=== PATIENT | female | born 1980 | race Hispanic/Latino ===

== ENCOUNTER 2018-04-21 15:19 | Emergency (ER) | payer BC, OTHER ==
[2018-04-21 15:20] VITALS: BMI 38.1
--- NOTE | 2018-04-21 16:05 | ED PDOC ---
Arrival/HPI - General Historian: Patient - History of Present Illness Time/Duration: < week Symptom Onset: Sudden Symptom Course: Unchanged Quality: Throbbing <Keegan Fowler - Last Filed: 04/21/18 17:29> - History of Present Illness Quality: Tightness, Stabbing, Cramping Severity Level: Severe Activities at Onset: Rest Context: Home <Ramiro Green - Last Filed: 04/21/18 18:15> - General Chief Complaint: Dental Pain Time Seen by Provider: 04/21/18 15:36 - History of Present Illness Narrative History of Present Illness (Text): 04/21/18 16:02 Pt is a 38 yo F with PMH of TMJ presents with left jaw pain. Patient states that pain has been present for 3 days and attempted to control pain with Naproxen. However, pain worsened and right jaw became more swollen. Patient states she was diagnosed with TMJ 6 years ago and has used a nighttime mouthpiece in the past, which improved her symptoms, but has not been able to use it recently. Patient also complains of ear pain and pain radiating down right side of her neck. Patient denies CP, SOB, n/v/d, abdominal pain, fever, chills, GILLIAM, or dizziness. (Keegan Fowler) Past Medical History - Provider Review Nursing Documentation Reviewed: Yes - Infectious Disease Hx of Infectious Diseases: None - Tetanus Immunization Tetanus Immunization: Unknown - Cardiac Hx Cardiac Disorders: No - Pulmonary Hx Respiratory Disorders: Yes Hx Asthma: Yes - Neurological Hx Neurological Disorder: No - HEENT Hx HEENT Disorder: No - Renal Hx Renal Disorder: Yes Hx Neurogenic Bladder: Yes Hx Pyelonephritis: Yes - Endocrine/Metabolic Hx Endocrine Disorders: No - Hematological/Oncological Hx Blood Disorders: No - Integumentary Hx Dermatological Disorder: No - Musculoskeletal/Rheumatological Hx Musculoskeletal Disorders: No - Gastrointestinal Hx Gastrointestinal Disorders: Yes Hx Gastritis: Yes - Genitourinary/Gynecological Hx Genitourinary Disorders: No - Psychiatric Hx Psychophysiologic Disorder: No Hx Depression: No Hx Substance Use: No - Past Surgical History Past Surgical History: Non-Contributing - Anesthesia Hx Anesthesia: No - Suicidal Assessment Feels Threatened In Home Enviroment: No <Keegan Fowler - Last Filed: 04/21/18 17:29> - Travel History Have you recently traveled outside [place] w/in the past 3 mons?: No - Past History Past History: No Previous - Reproductive Currently : Unknown <Ramiro Green - Last Filed: 04/21/18 18:15> Family/Social History - Physician Review Nursing Documentation Reviewed: Yes Family/Social History: No Known Family HX Smoking Status: Never Smoked Hx Alcohol Use: Yes Hx Substance Use: No Hx Substance Use Treatment: No <Keegan Fowler - Last Filed: 04/21/18 17:29> Allergies/Home Meds <Keegan Fowler - Last Filed: 04/21/18 17:29> <Ramiro Green - Last Filed: 04/21/18 18:15> Allergies/Adverse Reactions: Allergies No Known Allergies Allergy (Verified 04/21/18 15:22) Home Medications: Home Meds Medication Instructions Recorded Confirmed Albuterol 0.083% [Albuterol 0.083% 1 puff INH PRN PRN 06/22/17 04/21/18 Inhal Karla (2.5 mg/3 ml) UD] Fluticasone/Vilanterol [Breo 1 puff NEB DAILY 04/21/18 04/21/18 Ellipta 100-25 Mcg INH] Review of Systems - Review of Systems Constitutional: Normal Eyes: Normal ENT: Other (Right jaw pain, swelling, ear pain) Respiratory: Normal Cardiovascular: Normal Gastrointestinal: Normal Genitourinary Female: Normal Musculoskeletal: Normal Skin: Normal Neurological: Normal Endocrine: Normal Hemo/Lymphatic: Normal Psychiatric: Normal <Keegan Fowler - Last Filed: 04/21/18 17:29> Physical Exam Temperature: Afebrile Blood Pressure: Normal Pulse: Regular Respiratory Rate: Normal Appearance: Positive for: Uncomfortable Pain Distress: Moderate Mental Status: Positive for: Alert and Oriented X 3 - Systems Exam Head: Present: Atraumatic, Normocephalic Pupils: Present: PERRL Extroacular Muscles: Present: EOMI Conjunctiva: Present: Normal Mouth: Present: Other (multiple dental caries without signs of erythema or abscess; right jaw swelling; audible click with mouth opening) Neck: Present: Normal Range of Motion Respiratory/Chest: Present: Clear to Auscultation, Good Air Exchange. No: Respiratory Distress, Accessory Muscle Use Cardiovascular: Present: Regular Rate and Rhythm, Normal S1, S2. No: Murmurs Abdomen: No: Tenderness, Distention, Peritoneal Signs Back: Present: Normal Inspection Upper Extremity: Present: Normal Inspection. No: Cyanosis, Edema Lower Extremity: Present: Normal Inspection. No: Edema Neurological: Present: GCS=15, CN II-XII Intact, Speech Normal Skin: Present: Warm, Dry, Normal Color. No: Rashes Psychiatric: Present: Alert, Oriented x 3, Normal Insight, Normal Concentration <Keegan Fowler - Last Filed: 04/21/18 17:29> Vital Signs Temp Pulse Resp BP Pulse Ox 04/21/18 17:11 98.0 F 78 18 135/79 99 04/21/18 15:23 97.8 F 82 16 138/89 98 Medical Decision Making <Keegan Fowler - Last Filed: 04/21/18 17:29> Re-evaluation Time: 16:55 Reassessment Condition: Improving,but remains with symptoms <Ramiro Green - Last Filed: 04/21/18 18:15> ED Course and Treatment: 04/21/18 16:06 38 yo F presents with right jaw pain. Plan: - Motrin - reassess and disposition 04/21/18 17:29 On reassessment, patient states that pain is still present. Tramadol ordered. Patient states that pain is improved. Patient was advised to follow up with Oromaxillofacial surgeon. Patient medically stable for discharge. (Keegan Fowler) Patient Seen With Resident: In agreement with resident note which contains more details about the patient. Patient was seen and evaluated with resident. Came up with plan and treatment together. I performed the hx and physical exam of the patient and discussed their mgt with the RESIDENT. I reviewed the RESIDENT's NOTE and agree with the assessment and plan of care. exam: right TMJ region point tenderness, no crepitus noted, + right lower jaw/ mild swelling noted, no overlaying skin erythema, no open wounds/lesions noted; pt is able to open mouth slightly, able to see the posterior pharynx with midline tongue/uvula noted, no sores/lesions/wounds/rashes noted; no dysphonia/ drooling, no dental swelling/tenderness noted vital signs WNL pt is made aware of her medical results pt is encouraged not to chew gum/chew meat, and bland/simple/soft diet is encouraged pt is encouraged fluids pt will follow up as directed pt will be discharged home (Ramiro Green) - Medication Orders Current Medication Orders: Discontinued Medications Ibuprofen (Motrin Tab) 800 mg PO STAT STA Stop: 04/21/18 15:54 Last Admin: 04/21/18 16:24 Dose: 800 mg Tramadol HCl (Ultram) 50 mg PO STAT STA Stop: 04/21/18 17:06 Last Admin: 04/21/18 17:12 Dose: 50 mg MAR Pain Assessment Document 04/21/18 17:12 SF (Rec: 04/21/18 17:12 [id number]) Pain Reassessment Is this a pain reassessment? Yes Sleep Is patient sleeping during reassessment? No Presence of Pain Presence of Pain Yes Disposition/Present on Arrival - Present on Arrival Any Indicators Present on Arrival: No History of DVT/PE: No History of Uncontrolled Diabetes: No Urinary Catheter: No History of Decub. Ulcer: No History Surgical Site Infection Following: None - Disposition Have Diagnosis and Disposition been Completed?: Yes Disposition Time: 17:46 Patient Plan: Discharge <Keegan Fowler - Last Filed: 04/21/18 17:29> <Ramiro Green - Last Filed: 04/21/18 18:15> - Disposition Diagnosis: TMJ (temporomandibular joint syndrome) Disposition: HOME/ ROUTINE Patient Problems: Current Active Problems Problem Status Onset TMJ (temporomandibular joint syndrome) Acute Condition: STABLE Discharge Instructions (ExitCare): Temporomandibular Joint (TMJ) Disorders (DC) Print Language: WOLOF Additional Instructions: 1. Take Motrin as needed for pain 2. Follow up with dentist or oromaxillofacial surgeon outpatient 3. Follow up with PMD 4. If symptoms worsen, please return to ED 5. Drink plenty of fluids, SOFT Diet is encouraged, avoid chewing on the side of your face pain MANINDER WYLIE, thank you for letting us take care of you today. Your provider was Ramiro Green MD and you were treated for NECK PAIN. The emergency medical care you received today was directed at your acute symptoms. If you were prescribed any medication, please fill it and take as directed. It may take several days for your symptoms to resolve. Return to the Emergency Department if your symptoms worsen, do not improve, or if you have any other problems. Please contact your doctor or call one of the physicians/clinics you have been referred to that are listed on the Patient Visit Information form that is included in your discharge packet. Bring any paperwork you were given at discharge with you along with any medications you are taking to your follow up visit. Our treatment cannot replace ongoing medical care by a primary care provider outside of the emergency department. Thank you for allowing the [facility] team to be part of your care today. Follow up with Oral-Maxillofacial Surgery/service at the followin) [facility] call [phone] for further appointment 2) The Department of Dental Medicine treats all age groups from through geriatrics. Hours of Operation Monday - Monday 8:00 AM - 5:00 PM [facility] [address] [place] [address] Prescriptions: oxyCODONE/Acetaminophen [Percocet 5/325 mg Tab] 1 ea PO TID PRN #10 tab PRN Reason: Pain, Moderate (4-7) Referrals: [facility] [place] [Outside] - Follow up with primary [facility] [Outside] - Follow up with primary [facility] at [facility] [Outside] - Follow up with primary Forms: [employer] ([place]ish)
[2018-04-21 17:12] VITALS: BP 135/79; PULSE 78; RESP 18; TEMP 98; O2SAT 99
== END 2018-04-21 17:50 | disposition home or self-care (01) ==
LOC: ED 15:19
DX: M26.621 Arthralgia of right temporomandibular joint (principal)